=== PATIENT | female | born 1980 | race Native Hawaiian/Other Pacific Islander ===

== ENCOUNTER 2020-08-03 16:39 | Inpatient (IN) | payer MEDICARE, MEDICAID ==
[~2020-08-03] VITALS: Ht 141 cm; Wt 89.9 kg
[2020-08-17] VITALS (306 sets, daily range): BP systolic 90–114; BP diastolic 44–95; PULSE 64–91; TEMP 97.7–98; O2SAT 94–100
[2020-08-17] MEDS ORDERED: LATUDA120 MG PO (10:43)
[2020-08-17] MEDS ORDERED: RISPERDAL 1M1 MG/TAB PO (10:43)
[2020-08-17] MEDS ORDERED: PRAVACHOL 40MG40 MG PO (10:44)
[2020-08-17] MEDS ORDERED: PRILOSEC 20MG20 MG PO (10:44)
[2020-08-17] MEDS ORDERED: AMITIZA24 MCG PO (10:46)
[2020-08-17] MEDS ORDERED: LAMICTAL150 MG PO (10:46)
[2020-08-17] MEDS ORDERED: ZOLOFT 100MG100 MG PO (10:47)
[2020-08-17] MEDS ORDERED: TIROSINT25 MC1 PO (10:48)
--- NOTE | 2020-08-17 20:50 | NUR ---
Assessment complete and charted. Reported ABD pain at this time. Given PRN dilaudid. Denies other needs. Repositioned and exercises complete. Call light in reach.
[2020-08-18] VITALS (514 sets, daily range): BP systolic 107–1000; BP diastolic 59–73; PULSE 82–96; TEMP 97.8–98.6; O2SAT 85–100
--- NOTE | 2020-08-18 00:30 | NUR ---
Patient ABD sites CDI. Given PRN dilaudid for pain. Denies other needs. Call light in reach.
--- NOTE | 2020-08-18 04:00 | NUR ---
Resting in bed. ABD sites CDI. Reported pain and given PRN dilaudid. Denies other needs at this time. Call light in reach.
[2020-08-18 05:50] LABS: BASO # 0.1 (0.0-0.2); BASO % 0.7 % (0.0-2.0); EOS % 0.5 % (0-4.0); GRAN % 83.5 % (42.2-75.2); HEMATOCRIT 37.8 % (37.0-47.0); HEMOGLOBIN 12.3 g/dl (12.5-16.0); LYMPH # 0.9 (1.2-3.4); LYMPH % 10.7 % (20.0-51.0); MEAN CELL VOLUME 94 fl (80.0-100.0); MEAN CORPUSCULAR HEMOGLOBIN 31 pg (27.0-31.0); MEAN CORPUSCULAR HGB CONC 33 g/dl (33.0-37.0); MEAN PLATELET VOLUME 11.2 fl (7.4-10.4); MONO # 0.3 (0.1-0.6); MONO % 4.1 % (1.7-9.3); PLATELET COUNT 168 K/mm3 (130-400); RED BLOOD COUNT 4.02 M/mm3 (4.10-5.30); REDCELL DISTRIBUTION WIDTH-CV 14.7 % (11.5-14.5)
[2020-08-18 06:02] LABS: ALBUMIN 3.5 gm/dL (3.5-5.0); BILIRUBIN,TOTAL 0.6 mg/dL (0.0-1.0); CREATININE, serum 0.76 (0.52-1.25); POTASSIUM 4.1 mmol/L (3.4-5.0); TOTAL PROTEIN 6.6 gm/dL (6.4-8.2)
--- NOTE | 2020-08-18 06:50 | NUR ---
Patient required dilaudid for pain control throughout night. Otherwise uneventful night. Up to chair this AM. Call light in reach.
--- NOTE | 2020-08-18 07:18 | NUR ---
Report given to KONSTANTIN Buck
--- NOTE | 2020-08-18 11:42 | NUR ---
News Content Specialist met with patient and patient's motherShayy (ph#[phone]) to discuss discharge planning. Patient lives in [place] with her mother and sees Dr. Piña in [place] for primary care. Patient obtains medications from [facility] in [place] with no difficulties. Patient uses a CPAP at home and also has a scooter that she uses for when she has to walk long distances. Patient is fairly independent with ADLS and receives paid in home supports to assist with prompting and supervision for ADLS along with assistance for cooking and cleaning. Patient's motherShayy has been appointed as patient's Guardian and Conservator. Patient plans to return home upon discharge and has no questions or concerns at this time. Discharge Plan: Home with mother and continued paid in home supports
--- NOTE | 2020-08-18 12:55 | NUR ---
First visit from the director of retail operations. No needs right now.
--- NOTE | 2020-08-18 14:00 | NUR ---
Report called to KONSTANTIN García on surgical floor. PT ambulated with SBA from bed to wheelchair. Transported without incident. PT up from wheelchair to bed in room 350 SBA. Care turned over to KONSTANTIN García at 1400.
--- NOTE | 2020-08-18 20:00 | NUR ---
PT SITTING UP IN CHAIR. MOTHER AT SIDE. VERY SUPPORTIVE. MOTHER RELATES WOULD LIKE TO STAY OVER NIGHT WITH PT D/T SPECIAL NEEDS AND BEHAVIOR PROBLEMS. PTS MOTHER ALLOWED TO STAY. PT CALM NOW. DARLEEN DRAIN EMPTIED WITH BRIGHT RED BLOOD. 50CC EARLIER. PAIN CONTROLLED WITH NORCO. NO NEEDS A THTIS TIME. CALL LIGHT IN REACH. IV SITE TO RT THUMB AREA POSTIONAL. NS W/20K AT 100CC/HR INFUSING. PT PO CLIQ INCREASED TO 30CC Q 15MIN NOW. VANDANA WELL. NO NAUSEA. PASSING A LITTLE GAS. NO BM YET.
[2020-08-19 00:04] VITALS: BP 118/69; PULSE 94; TEMP 98.7
--- NOTE | 2020-08-19 04:30 | NUR ---
O2 SAT MID 70'S. O2 2L N/C STARTED. ENC TCDB. O2 SAT 94%. MOTHER STAYED WITH PT THROUGH THE NIGHT.
[2020-08-19 04:42] VITALS: BP 112/65; PULSE 98; TEMP 98.3
[2020-08-19 06:31] LABS: BASO # 0.1 (0.0-0.2); BASO % 0.7 % (0.0-2.0); EOS # 0.1 (0.0-0.7); GRAN % 74.9 % (42.2-75.2); HEMOGLOBIN 11.7 g/dl (12.5-16.0); LYMPH # 1.2 (1.2-3.4); LYMPH % 17.6 % (20.0-51.0); MEAN CELL VOLUME 93 fl (80.0-100.0); MEAN CORPUSCULAR HEMOGLOBIN 30 pg (27.0-31.0); MEAN CORPUSCULAR HGB CONC 32 g/dl (33.0-37.0); MEAN PLATELET VOLUME 11.3 fl (7.4-10.4); MONO # 0.4 (0.1-0.6); MONO % 5.2 % (1.7-9.3); PLATELET COUNT 154 K/mm3 (130-400); RED BLOOD COUNT 3.87 M/mm3 (4.10-5.30); REDCELL DISTRIBUTION WIDTH-CV 14.6 % (11.5-14.5)
[2020-08-19 06:41] LABS: HEMATOCRIT 36.1 % (37.0-47.0)
[2020-08-19 08:02] VITALS: BP 100/60; PULSE 86; TEMP 97.9
--- NOTE | 2020-08-19 09:25 | NUR ---
Patient sitting up in chair. She has been up and ambulated the halls with her mother. She reports elevated pain to her abdomen. Liquid norco per orders. Full liquid breakfast ordered. Horacio yip to see patient. Eduard to MARGIE with adeuate output. Adams to bulb compression. Lap site bandaids intact. Will monitor.
[2020-08-19] MEDS ORDERED: ZOFRAN 4MG T4 MG/TAB PO (09:52)
[2020-08-19] MEDS ORDERED: NORCO 325 MG-51 TAB PO (09:52)
--- NOTE | 2020-08-19 10:42 | NUR ---
Initial visit; Patient and her mom thanked Surgical Technologist for looking in on Kim and offering encouragement and prayer along with God's blessings.
--- NOTE | 2020-08-19 11:07 | NUR ---
The patient is to tentatively d/c tomorrow. SW met with the patient and her mother, Shayy, to review d/c plan. The patient's mother had no concerns about returning home upon discharge. SW presented and read the IM form outloud to the patient and her mother. The patient's mother verbalized understanding and the patient signed the form. SW provided them with a copy. No additional needs at this time.
--- NOTE | 2020-08-19 11:45 | NUR ---
Eduard PITTMAN, patient tolerated well. brief on. Lunch ordered.
[2020-08-19 13:15] VITALS: BP 102/65; PULSE 80; TEMP 97.9
--- NOTE | 2020-08-19 13:45 | NUR ---
Patient sleeping soundly, supportive mother at bedside.
[2020-08-19 15:33] VITALS: BP 110/65; PULSE 88
[2020-08-19 19:43] VITALS: BP 121/65; PULSE 86; TEMP 98.4
--- NOTE | 2020-08-19 20:06 | NUR ---
Patient tolerated small amount of dinner & sips of liquid throughout the day. [place] manges pain. DARLEEN drain to compression. Iv to Int. She has voided without difficutly & had BM this evening. Patient has ambulated halls with her mother. Bedside report to Amisha who will resume cares.
--- NOTE | 2020-08-19 23:11 | NUR ---
PT SITTING UP IN RECLINER.REPORTED AMB 6 TIMES TODAY. ENC ANOTHER WALK LATER.. MOTHER STAYING WITH SPECIAL NEEDS PT. SEE MAR FOR PAIN MEDS GIVEN. DARLEEN DRAIN PATENT. VOIDING WELL. REPORTED HAD SMALL BM EARLIER TODAY. EATING FULL LIQ DIET WELL. NO NAUSEA. CALL LIGHT IN REACH.
[2020-08-20] VITALS: BP 100/60; PULSE 78; TEMP 98.2
[2020-08-20 04:44] VITALS: BP 102/58; PULSE 77; TEMP 98.4
[2020-08-20 06:33] LABS: BASO % 0.7 % (0.0-2.0); EOS # 0.1 (0.0-0.7); GRAN # 4.4 (1.4-6.5); GRAN % 72.8 % (42.2-75.2); HEMOGLOBIN 11.4 g/dl (12.5-16.0); LYMPH # 1.1 (1.2-3.4); LYMPH % 17.5 % (20.0-51.0); MEAN CELL VOLUME 95 fl (80.0-100.0); MEAN CORPUSCULAR HEMOGLOBIN 31 pg (27.0-31.0); MEAN CORPUSCULAR HGB CONC 32 g/dl (33.0-37.0); MONO # 0.4 (0.1-0.6); MONO % 6.3 % (1.7-9.3); PLATELET COUNT 134 K/mm3 (130-400); RED BLOOD COUNT 3.74 M/mm3 (4.10-5.30); REDCELL DISTRIBUTION WIDTH-CV 14.5 % (11.5-14.5)
[2020-08-20 06:38] LABS: HEMATOCRIT 35.5 % (37.0-47.0)
--- NOTE | 2020-08-20 08:00 | NUR ---
Late entry; Patient ambulating in halls with mother, steady gait. Assessment complete. lap sites with bandaids are CDI. DARLEEN to bulb compression with serosanguinous drainage present. Patient denies pain at this time. No further needs at this time.
[2020-08-20 08:46] VITALS: BP 116/75; PULSE 85; TEMP 98.1
[2020-08-20 12:46] VITALS: BP 100/58; PULSE 97; TEMP 98.4
--- NOTE | 2020-08-20 13:00 | NUR ---
DARLEEN drain discontinued per orders, patient tolerated procedure well.
--- NOTE | 2020-08-20 13:50 | NUR ---
Discharge education provided to patient and mother. Educated on when to call provider and follow up appointment with valentín gannon. Educated on new medications and medication safety. Educated on signs and symptoms of infection. Patient and mother educated on when to call provider. All questions answered.
--- NOTE | 2020-08-20 14:10 | NUR ---
Patient out by wheelchair with surgical staff and family.
== END 2020-08-20 14:10 | disposition home or self-care (01) | DRG 621 ==
LOC: SURG 08-10 07:30 → INPTSU 08-17 09:19 → SURG 08-17 11:45 → ICU 08-17 16:10 → SURG 08-18 13:24
PROVIDERS: ADMIT Surgery
PROC: 0DNU4ZZ Release Omentum, Percutaneous Endoscopic Approach (ICD-10-PCS; 2020-08-17)
PROC: 0D164ZA Bypass Stomach to Jejunum, Percutaneous Endoscopic Approach (ICD-10-PCS; principal; 2020-08-17 11:45)
DX: E66.01 Morbid (severe) obesity due to excess calories (principal); Z68.42 Body mass index [BMI] 45.0-49.9, adult; F32.9 Major depressive disorder, single episode, unspecified; F41.9 Anxiety disorder, unspecified; Q90.9 Down syndrome, unspecified; E11.9 Type 2 diabetes mellitus without complications; Z20.822 Contact with and (suspected) exposure to COVID-19
CPT/HCPCS: A4314; C9113; J1170; J1650; J1956; J2704; J2765; J3010; J3480; J7030